=== PATIENT | male | born 1990 | race Caucasian/White ===

== ENCOUNTER 2017-08-09 17:18 | Emergency (ER) | payer OTHER ==
[~2017-08-09] VITALS: Ht 193 cm; Wt 70.8 kg
[2017-08-09] MEDS ORDERED: ADDERALL XR 3030 M1 (17:48)
== END 2017-08-09 19:16 | disposition home or self-care (01) ==
LOC: ER 17:18
DX: S01.82XA Laceration with foreign body of other part of head, initial encounter (principal); W26.8XXA Contact with other sharp object(s), not elsewhere classified, initial encounter; Y93.89 Activity, other specified; Y92.832 Beach as the place of occurrence of the external cause; Y99.8 Other external cause status